=== PATIENT | female | born 1935 | race Caucasian/White ===

== ENCOUNTER 2017-08-25 07:34 | Day surgery (SDC) | payer MEDICARE, BC ==
[~2017-08-25 07:34] MED LIST: Lidocaine 4% 5 ML Amp EYERT ONE; Moxifloxacin 0.5% Ophth Soln 3 ML Bottle EYERT ONE; Sodium Chloride 0.9% 10 ML Syringe FLUSH PRN
[2017-08-25] MEDS ORDERED: Midazolam 1 MG/ML 2 ML SDV IV ONE (07:35)
[2017-08-25] MEDS: Cataract Ophth Solution EYERT ONE ×2 (08:10→08:45)
[2017-08-25] MEDS ORDERED: Cyclopentolate 2% Ophth Soln 5 ML Bottle EYERT ONE ×2 (09:20→09:41)
[2017-08-25] MEDS ORDERED: Cyclopentolate 2% Ophth Soln 5 ML Bottle ONE (09:24)
[2017-08-25] MEDS ORDERED: Povidone-Iodine 5% Sterile Ophth Soln 30 ML Bottle EYERT ONE (09:52)
[2017-08-25] MEDS ORDERED: Lidocaine 1% 30 ML SDV ONE (09:53)
[2017-08-25] MEDS ORDERED: Balanced Salt Solution Ophth Irrig 500 ML Bottle IOCULAR ONE (09:53)
[2017-08-25] MEDS ORDERED: EPINEPHrine 1 MG/ML SDV ONE (09:53)
[2017-08-25] MEDS ORDERED: prednisoLONE Acetate 1% Ophth Susp 5 ML Bottle EYERT ONE (09:53)
[2017-08-25] MEDS ORDERED: Moxifloxacin 0.5% Ophth Soln 3 ML Bottle EYERT ONE (09:54)
[2017-08-25] MEDS ORDERED: Lidocaine 4% 5 ML Amp EYERT ONE (09:54)
--- NOTE | 2017-08-25 10:35 | PCM.OPNOTE ---
- General Post-Op/Procedure Note Date of Surgery/Procedure: 08/25/17 Operative Procedure(s): Cataract extraction with lens implant, right eye Findings: As above Pre Op Diagnosis: Cataract right eye Post-Op Diagnosis: Same Anesthesia Technique: MAC Primary Surgeon: Alli Mccord Anesthesia Provider: Nick Pathology: None EBL in mLs: 0 Complications: None Condition: Good Free Text/Narrative:: PROCEDURE: After the risks and benefits of the procedure were explained informed consent was obtained from the patient and the patient was taken to the operating room. The patient was given topical Lidocaine 4% drops in the right eye. The patient was then prepped and draped in the sterile [facility] fashion. A wire lid speculum was placed in the right eye. A clear cornea temporal approach was used. A 7515 quinault blade was used to make a paracentesis site around 11:00. Preservative-free Lidocaine 1% was injected intracamerally. Viscoelastic was placed in the anterior chamber. A 2.65 mm keratome blade was used to make a clear corneal incision around 9:00. A cystotome needle and Utrata forceps were used to perform continuous curvilinear capsulorhexis. Balanced Salt Solution was used to perform hydrodissection and hydrodelineation. The lens nucleus was removed using the divide and conquer phacoemulsification technique. Cumulative dissipated energy was 4.83. Remaining cortex was removed using irrigation- aspiration. Viscoelastic was placed in the capsular bag. PCBOO 22.5 diopter lens was then placed in the capsular bag. Remaining viscoelastic was removed using irrigation-aspiration. The lens was well centered in the capsular bag. The paracentesis and corneal incision were found to be water-tight. The patient was given topical Prednisolone and Vigamox drops. The speculum was removed and a shield was placed over the right eye. The patient was taken to recovery in stable condition. I certify that I was present for and performed the entire operative procedure. Alli Mccord M.D.
[2017-08-25 11:30] VITALS: BP 134/77
== END 2017-08-25 11:20 | disposition home or self-care (01) ==
LOC: DL.SDS 07:34
PROVIDERS: ATTEND Ophthalmology
DX: H25.811 Combined forms of age-related cataract, right eye (principal); E03.9 Hypothyroidism, unspecified; G45.9 Transient cerebral ischemic attack, unspecified; Z88.8 Allergy status to other drugs, medicaments and biological substances; E78.00 Pure hypercholesterolemia, unspecified; Z98.890 Other specified postprocedural states; Z91.040 Latex allergy status; Z96.642 Presence of left artificial hip joint
CPT/HCPCS: 00142; 66984; A9270; C1780; J0171; J2250; J7050

== ENCOUNTER 2020-03-29 12:50 | Emergency (ER) | payer MEDICARE, BC ==
[2020-03-29] MEDS ORDERED: Sodium Chloride 0.9% 10 ML Syringe FLUSH PRN (12:59)
[2020-03-29 13:06] VITALS: BP 143/79; PULSE 76
--- NOTE | 2020-03-29 13:15 | EDM.PDOC ---
ED HPI GENERAL MEDICAL PROBLEM - General Chief Complaint: Neuro Symptoms/Deficits Stated Complaint: TROUBLE SPEAKING Time Seen by Provider: 03/29/20 13:05 Source of Information: Reports: Patient, RN, RN Notes Reviewed History Limitations: Reports: No Limitations - History of Present Illness INITIAL COMMENTS - FREE TEXT/NARRATIVE: Patient relates to the ER with complaint of difficulty speaking this morning. Patient states she had a TIA 10 years ago. Patient states today she was talking on the phone and had difficulty remembering what her address was. Patient states she commonly has difficulty getting words out, states she can see them and can write them but cannot say them. Patient states this has been happening for about the last 3 years. Patient states this morning made her very uneasy as she could not remember or state her address. Upon arrival to the ER, patient is alert and oriented, no difficulty with speech noted, no facial droop or one-sided weakness. Patient denies pain, denies headache, denies recent illness, fever, chills, N/V/D, chest pains, or shortness of breath.. Patient reports history of breast cancer. Patient states she did have a fall approximately 8 days ago. Patient states she did not hit her head and was not knocked out at that time. Does complain of some neck pain, and has seen her PCP since. Patient will be seeing physical therapy for her neck. NIHSS: 0 Onset: Today, Sudden Duration: Improving - Related Data Allergies Allergy/AdvReac Type Severity Reaction Status Date / Time latex Allergy Unknown Itching Verified 03/29/20 13:06 tramadol [From Ultram] Allergy Itching Verified 03/29/20 13:06 oxycodone AdvReac Other Verified 03/29/20 13:06 Home Meds: Home Meds Aspirin [Ecotrin EC] 81 mg PO DAILY 05/19/14 [History] Levothyroxine 75 mcg PO ACBRK 05/19/14 [History] Multivitamin [One Daily] 1 each PO DAILY 05/19/14 [History] Simvastatin [Zocor] 20 mg PO BEDTIME 05/19/14 [History] polyethylene glycoL 3350 [Miralax] 17 gm PO DAILY PRN 05/19/14 [History] Anastrozole [Arimidex] 1 mg PO DAILY 08/24/17 [History] Denosumab [Prolia] 60 mg SQ .[id number] 08/24/17 [History] Past Medical History HEENT History: Reports: Cataract Cardiovascular History: Reports: Heart Murmur, High Cholesterol Respiratory History: Reports: None Gastrointestinal History: Reports: None Genitourinary History: Reports: None [employer] History: Reports: Musculoskeletal History: Reports: Arthritis, Osteoporosis Neurological History: Reports: TIA Psychiatric History: Reports: None Endocrine/Metabolic History: Reports: Hypothyroidism Hematologic History: Reports: None Immunologic History: Reports: None Oncologic (Cancer) History: Reports: Breast Dermatologic History: Reports: None - Infectious Disease History Infectious Disease History: Reports: Chicken Pox, Measles - Past Surgical History HEENT Surgical History: Reports: None Cardiovascular Surgical History: Reports: None Respiratory Surgical History: Reports: None GI Surgical History: Reports: Colonoscopy Female Surgical History: Reports: D&C, Mastectomy Musculoskeletal Surgical History: Reports: Hip Replacement Oncologic Surgical History: Reports: Biopsy of Breast, Mastectomy Other Oncologic Surgeries/Procedures: RIGHT SIDE LIMB ALERT Dermatological Surgical History: Reports: Skin Biopsy Social & Family History - Family History Family Medical History: Noncontributory - Caffeine Use Caffeine Use: Reports: Coffee Caffeine Use Comment: 5 CUPS DAILY ED ROS GENERAL - Review of Systems Review Of Systems: Comprehensive ROS is negative, except as noted in HPI. ED EXAM, NEURO - Physical Exam Exam: See Below Exam Limited By: No Limitations General Appearance: Alert, WD/WN, No Apparent Distress, Anxious Eye Exam: Bilateral Eye: EOMI, PERRL (2 sluggish) Ears: Normal External Exam, Normal Canal, Hearing Grossly Normal, Normal TMs Nose: Normal Inspection Throat/Mouth: Normal Inspection, Normal Voice, No Airway Compromise Head Exam: Atraumatic, Normocephalic Neck: Normal Inspection, Limited Range of Motion, Tender Lateral Respiratory/Chest: No Respiratory Distress, Lungs Clear, Normal Breath Sounds, No Accessory Muscle Use, Chest Non-Tender Cardiovascular: Normal Peripheral Pulses, Regular Rate, Rhythm, No Edema, No Gallop, No JVD, No Murmur, No Rub GI/Abdominal: Normal Bowel Sounds, Soft, Non-Tender, No Organomegaly, No Distention, No Abnormal Bruit, No Mass, Pelvis Stable (Female) Exam: Deferred Rectal (Female) Exam: Deferred Neurological: Alert, Normal Mood/Affect, Normal Dorsiflexion, CN II-XII Intact, Normal Plantar Flexion, Normal Gait, Normal Reflexes, No Motor/Sensory Deficits , Oriented x 3 Back Exam: Normal Inspection, Full Range of Motion Extremities: Normal Inspection, Normal Range of Motion, Non-Tender, No Pedal Edema, Normal Capillary Refill Psychiatric: Normal Affect, Normal Mood, Anxious Skin Exam: Warm, Dry, Intact, Normal Color, No Rash Course - Vital Signs Last Recorded V/S: Last Vital Signs Temp 97 F 03/29/20 12:58 Pulse 76 03/29/20 12:58 Resp 18 03/29/20 12:58 BP 143/79 H 03/29/20 12:58 Pulse Ox 98 03/29/20 12:58 - Orders/Labs/Meds Orders: Active Orders 24 hr Category Date Time Status Blood Glucose Check, Bedside [RC] ONETIME Care 03/29/20 13:05 Active EKG Documentation Completion [RC] STAT Care 03/29/20 12:59 Active Peripheral IV Care [RC] . DIRECTED Care 03/29/20 13:05 Active CULTURE URINE [RM] Stat Lab 03/29/20 13:50 Received Peripheral IV Insertion Adult [OM.PC] Stat Oth 03/29/20 12:59 Ordered Labs: Laboratory Tests 03/29/20 03/29/20 03/29/20 Range/Units 13:35 13:35 13:35 WBC 6.6 (5.0-10.0) 10^3/uL RBC 4.75 (4.2-5.4) 10^6/uL Hgb 14.0 D (12.0-16.0) g/dL Hct 42.2 (37.0-47.0) % MCV 88.8 (80-100) fL MCH 29.5 (27.0-34.0) pg MCHC 33.2 (33.0-35.0) g/dL Plt Count 240 (150-450) 10^3/uL Neut % (Auto) 55.5 (42.2-75.2) % Lymph % (Auto) 30.6 (20.5-50.1) % Charlton % (Auto) 11.3 H (2-8) % Eos % (Auto) 2.0 (1.0-3.0) % Baso % (Auto) 0.6 (0.0-1.0) % PT 9.7 (9.0-12.0) SEC INR 1.0 (0.9-1.2) Sodium 140 (136-145) mmol/L Potassium 4.2 (3.5-5.1) mmol/L Chloride 103 (98-107) mmol/L Carbon Dioxide 29 (21-32) mmol/L Anion Gap 12.2 (7-13) mEq/L BUN 15 (7-18) mg/dL Creatinine 0.96 (0.55-1.02) mg/dL Est Cr Clr Drug Dosing 36.55 mL/min Estimated GFR (MDRD) 56 BUN/Creatinine Ratio 15.6 (No establ ref range) Glucose 85 (74-99) mg/dL Calcium 9.6 (8.5-10.1) mg/dL Total Bilirubin 0.3 (0.2-1.0) mg/dL AST 19 (15-37) U/L ALT 19 (14-59) U/L Alkaline Phosphatase 74 (46-116) U/L Troponin I < 0.017 (0.000-0.056) ng/mL Total Protein 7.3 (6.4-8.2) g/dL Albumin 3.5 (3.4-5.0) g/dL Globulin 3.8 Albumin/Globulin Ratio 0.9 Urine Color (YELLOW) Urine Appearance (CLEAR) Urine pH (5.0-9.0) Ur Specific Velva (1.005-1.030) Urine Protein (NEGATIVE) Urine Glucose (UA) (NEGATIVE) Urine Ketones (NEGATIVE) Urine Occult Blood (NEGATIVE) Urine Nitrite (NEGATIVE) Urine Bilirubin (NEGATIVE) Urine Urobilinogen (0.2-1.0) mg/dL Ur Leukocyte Esterase (NEGATIVE) Urine RBC /HPF Urine WBC (0-5/HPF) /HPF Ur Epithelial Cells (NOT SEEN) /HPF Amorphous Sediment (NOT SEEN) /HPF Urine Bacteria (0-FEW/HPF) /HPF Urine Mucus (NOT SEEN) /LPF Ethyl Alcohol < 3 (0) mg/dL 03/29/20 Range/Units 13:50 WBC (5.0-10.0) 10^3/uL RBC (4.2-5.4) 10^6/uL Hgb (12.0-16.0) g/dL Hct (37.0-47.0) % MCV (80-100) fL MCH (27.0-34.0) pg MCHC (33.0-35.0) g/dL Plt Count (150-450) 10^3/uL Neut % (Auto) (42.2-75.2) % Lymph % (Auto) (20.5-50.1) % Charlton % (Auto) (2-8) % Eos % (Auto) (1.0-3.0) % Baso % (Auto) (0.0-1.0) % PT (9.0-12.0) SEC INR (0.9-1.2) Sodium (136-145) mmol/L Potassium (3.5-5.1) mmol/L Chloride (98-107) mmol/L Carbon Dioxide (21-32) mmol/L Anion Gap (7-13) mEq/L BUN (7-18) mg/dL Creatinine (0.55-1.02) mg/dL Est Cr Clr Drug Dosing mL/min Estimated GFR (MDRD) BUN/Creatinine Ratio (No establ ref range) Glucose (74-99) mg/dL Calcium (8.5-10.1) mg/dL Total Bilirubin (0.2-1.0) mg/dL AST (15-37) U/L ALT (14-59) U/L Alkaline Phosphatase (46-116) U/L Troponin I (0.000-0.056) ng/mL Total Protein (6.4-8.2) g/dL Albumin (3.4-5.0) g/dL Globulin Albumin/Globulin Ratio Urine Color Yellow (YELLOW) Urine Appearance Slightly cloudy (CLEAR) Urine pH 6.5 (5.0-9.0) Ur Specific Velva 1.020 (1.005-1.030) Urine Protein Negative (NEGATIVE) Urine Glucose (UA) Negative (NEGATIVE) Urine Ketones Negative (NEGATIVE) Urine Occult Blood Negative (NEGATIVE) Urine Nitrite Negative (NEGATIVE) Urine Bilirubin Negative (NEGATIVE) Urine Urobilinogen 0.2 (0.2-1.0) mg/dL Ur Leukocyte Esterase Small H (NEGATIVE) Urine RBC 0-5 /HPF Urine WBC 0-5 (0-5/HPF) /HPF Ur Epithelial Cells Rare (NOT SEEN) /HPF Amorphous Sediment Occasional (NOT SEEN) /HPF Urine Bacteria Rare (0-FEW/HPF) /HPF Urine Mucus Not seen (NOT SEEN) /LPF Ethyl Alcohol (0) mg/dL Meds: Medications Discontinued Medications Generic Name Dose Route Start Last Admin Trade Name Kayla PRN Reason Stop Dose Admin Sodium Chloride 10 ml 03/29/20 12:59 Saline Flush FLUSH ASDIRECTED PRN Keep Vein Open - Radiology Interpretation Free Text/Narrative:: Head CT wo contrast: Multi-infarct ischemic disease, chronic. No new intracranial mass, hydrocephalus or bleed Unchanged from May 12, 2018 exam See rad report - Re-Assessments/Exams Free Text/Narrative Re-Assessment/Exam: 03/29/20 15:18 NIHSS: 0 Departure - Departure Time of Disposition: 14:24 Disposition: Home, Self-Care 01 Condition: Fair Clinical Impression: TIA (transient ischemic attack) - Discharge Information *PRESCRIPTION DRUG MONITORING PROGRAM REVIEWED*: No *COPY OF PRESCRIPTION DRUG MONITORING REPORT IN PATIENT NILDA: No Instructions: Transient Ischemic Attack, [id number] Forms: ED Department Discharge Additional Instructions: Follow up with your primary care facility Return to ER with any further problems Sepsis Event Note (ED) - Evaluation Sepsis Screening Result: No Definite Risk - Focused Exam Vital Signs: Vital Signs Temp Pulse Resp BP Pulse Ox 03/29/20 12:58 97 F 76 18 143/79 H 98 - My Orders Last 24 Hours: My Active Orders 03/29/20 12:59 EKG Documentation Completion [RC] STAT Peripheral IV Insertion Adult [OM.PC] Stat 03/29/20 13:05 Blood Glucose Check, Bedside [RC] ONETIME Peripheral IV Care [RC] . DIRECTED 03/29/20 13:50 CULTURE URINE [RM] Stat - Assessment/Plan Last 24 Hours: My Active Orders 03/29/20 12:59 EKG Documentation Completion [RC] STAT Peripheral IV Insertion Adult [OM.PC] Stat 03/29/20 13:05 Blood Glucose Check, Bedside [RC] ONETIME Peripheral IV Care [RC] . DIRECTED 03/29/20 13:50 CULTURE URINE [RM] Stat
--- NOTE | 2020-03-29 13:36 | CT ---
EXAMINATION: Head wo Cont SEX: Female AGE: 84 years CLINICAL HISTORY: 84-year-old female with trouble speaking "at times" (TIA). History stage II breast cancer this patient reported on [address] scan to have "multi-infarct ischemic disease". Scan technique: Volume acquisition of data unenhanced CT scan of the head and brain obtained with patient lying supine on the Siemens multislice scanner [facility]. All data archived in the PACS system for storage, reformatting axial/sagittal/coronal planes and study. Interpretation: Abnormal. Multiple focal areas of decreased attenuation scattered throughout the periventricular white matter of both cerebral hemispheres as noted back on 12 May 2018 exam i.e. multi-infarct ischemic lesions unchanged. Uniformly thick bony calvarium without sign of pathologic skeletal lesion, skull fracture, underlying brain contusion or epidural/subdural hematoma. Mild symmetric cerebral cortical and cerebellar atrophy pattern. Underlying mirror-image normal ventricular system. No hydrocephalus. No encephalomalacia or arachnoid cyst. No new supratentorial or posterior fossa mass lesion. Dense midline pineal calcification. Brainstem unremarkable. No sign of acute intracerebral, intraventricular or subarachnoid bleed. CONCLUSION: Multi-infarct ischemic disease, chronic. No new intracranial mass, hydrocephalus or bleed.
[2020-03-29 14:07] LABS: ANION GAP 12.2 mEq/L (7-13); CHLORIDE,CL 103 mmol/L (98-107); SODIUM,NA 140 mmol/L (136-145)
== END 2020-03-29 14:34 | disposition home or self-care (01) ==
LOC: DL.ED 12:50
DX: G45.9 Transient cerebral ischemic attack, unspecified (principal); E78.00 Pure hypercholesterolemia, unspecified; E03.9 Hypothyroidism, unspecified; M19.90 Unspecified osteoarthritis, unspecified site; Z88.5 Allergy status to narcotic agent; Z91.040 Latex allergy status; Z79.82 Long term (current) use of aspirin; Z79.899 Other long term (current) drug therapy
CPT/HCPCS: 36415; 70450; 80053; 80307; 81001; 82962; 84484; 85025; 85610; 87086; 93005; 99284; 99285-25

== ENCOUNTER 2020-05-02 07:00 | Day surgery (SDC) | payer MEDICARE, BC ==
[~2020-05-02 07:00] MED LIST changes: +Acetaminophen 325 MG Tab PO PRN; +Cataract Ophth Solution EYELF ONE; -Lidocaine 4% 5 ML Amp EYERT ONE; +Moxifloxacin 0.5% Ophth Soln 3 ML Bottle EYELF ONE; -Moxifloxacin 0.5% Ophth Soln 3 ML Bottle EYERT ONE; +Ondansetron 4 MG/2 ML SDV IVPUSH PRN; +Phenylephrine 10% Ophth Soln 5 ML Bot EYELF ONE; +Povidone-Iodine 5% Sterile Ophth Soln 30 ML Bottle EYELF ONE; +Proparacaine 0.5% Ophth Soln 15 ML Bottle EYELF ONE; +Timolol Maleate 0.5% Ophth Soln 5 ML Bottle EYELF ONE; +Tropicamide 1% Ophth Soln 15 ML Bottle EYELF ONE
[2020-05-02] MEDS ORDERED: Dexamethasone 4 MG/ML SDV IV ONE (07:01)
[2020-05-02] MEDS ORDERED: Midazolam 1 MG/ML 2 ML SDV IV ONE (07:01)
[2020-05-02] MEDS ORDERED: Sodium Chloride 0.9% 10 ML Syringe IV ONE (07:01)
[2020-05-02] MEDS ORDERED: Tetracaine HCl/PF 0.5% 4 ML Bottle EYELF ONE (08:29)
[2020-05-02] MEDS ORDERED: Diclofenac Sodium 0.1% Ophth Soln 5 ML Bottle EYELF ONE (08:29)
[2020-05-02] MEDS ORDERED: Apraclonidine 0.5% Ophth Soln 5 ML Bot EYELF ONE (08:29)
[2020-05-02] MEDS ORDERED: Povidone-Iodine 5% Sterile Ophth Soln 30 ML Bottle EYELF ONE (08:29)
[2020-05-02] MEDS ORDERED: Lidocaine 1% 30 ML SDV ONE (08:29)
[2020-05-02] MEDS ORDERED: Chondroitin Sulfate/Hyaluronate Sodium Ophth Inj 0.75 ML Syringe EYELF ONE (08:30)
[2020-05-02] MEDS ORDERED: Dexamethasone/Neomycin/Polymyxin B Ophth Oint 3.5 GM Tube EYELF ONE (08:30)
[2020-05-02] MEDS ORDERED: Vancomycin 500 MG SDV EYELF ONE (08:30)
[2020-05-02] MEDS ORDERED: Balanced Salt Solution Ophth Irrig 500 ML Bottle IOCULAR ONE (08:30)
--- NOTE | 2020-05-02 10:15 | OR ---
DATE: 05/02/2020 PREOPERATIVE DIAGNOSIS: Visually significant mixed cataract, left eye. POSTOPERATIVE DIAGNOSIS: Visually significant mixed cataract, left eye. PROCEDURE: Extracapsular cataract extraction with intraocular lens implant, left eye. ANESTHESIA: Topical/local MAC. COMPLICATIONS: None. INDICATION: Ms. Garcia was seen in the clinic with complaints of blurred vision. The examination revealed visually significant mixed cataract. I explained the options. I offered cataract surgery and I explained risks, including, but not limited to, infection, retinal detachment, loss of vision, need for additional surgery, and risks associated with anesthesia. She does have a history of macular degeneration. I did explain that her ultimate visual potential may be limited by retinal health. We discussed implant options. She has requested a monofocal implant. OPERATIVE DESCRIPTION: After informed consent was obtained and the risks, benefits, and alternatives were explained, the patient was brought to the operative suite and topical anesthesia was administered. The patient was then prepped and draped in the sterile fashion and attention was placed on the left eye. A sterile lid speculum was placed into the left eye to allow operative exposure. A full-thickness paracentesis was made in the temporal portion of the operative eye. Preservative-free lidocaine 0.1 mL was injected into the anterior chamber followed by viscoelastic. A full-thickness corneal incision was then made into the anterior chamber. A bent needle cystotome was used to create a small boogie in the anterior capsule. The capsulorrhexis forceps was then used to create a 360-degree curvilinear capsulorrhexis. The nucleus was then removed using a phacoemulsification handpiece and the remaining cortical material was then removed with irrigation and aspiration handpiece. Following removal of the cortical material, the capsular bag was then inspected and noted to be free of any holes or tears. Viscoelastic was then injected into the capsular bag and the intraocular lens was inserted into the capsular bag. The viscoelastic material was then removed from both the anterior and posterior chambers and from behind the IOL. The lens and capsular bag were then reinspected. The IOL was well centered and the capsular bag intact. The wound and paracentesis sites were inspected and hydrated with balanced saline solution. Both were found to be self- sealing. The intraocular pressure was assessed digitally and found to be within normal range. A good red reflex was noted at the completion of the procedure. No complications occurred during the operation. At the completion of the procedure, Jennifer, Voltaren, and Iopidine drops were placed into the operative eye. A sterile eye shield was placed over the operative eye and the patient was transported to the postoperative recovery area having tolerated the procedure well. Postoperative instructions were given along with a postoperative appointment. The patient was advised to call with any questions or concerns. [facility] /[id number]
[2020-05-02 11:57] VITALS: BP 124/66; PULSE 64
== END 2020-05-02 09:42 | disposition home or self-care (01) ==
LOC: DL.SDS 07:00
PROVIDERS: ATTEND Ophthalmology
DX: H25.812 Combined forms of age-related cataract, left eye (principal); E66.9 Obesity, unspecified; E78.5 Hyperlipidemia, unspecified; Z79.899 Other long term (current) drug therapy; Z91.040 Latex allergy status; Z88.8 Allergy status to other drugs, medicaments and biological substances; Z98.41 Cataract extraction status, right eye; Z68.35 Body mass index [BMI] 35.0-35.9, adult
CPT/HCPCS: 00142; 66984; A9270; J1100; J2001; J2250; J3370; V2632

== ENCOUNTER 2022-04-17 19:28 | Emergency (ER) | payer MEDICARE, BC ==
[2022-04-17 19:25] VITALS: BP 135/81; PULSE 93
[2022-04-17 20:37] LABS: ANION GAP 8.4 mEq/L (7-13)
[2022-04-17] MEDS ORDERED: Iopamidol 755 Mg/ML 100 ML Bottle IVPUSH ONE (20:57)
[2022-04-17] MEDS ORDERED: Benzonatate 100 MG Cap PO ONE (22:43)
== END 2022-04-17 23:06 | disposition home or self-care (01) ==
LOC: DL.ED 19:28
DX: U07.1 COVID-19 (principal); E03.9 Hypothyroidism, unspecified; E66.9 Obesity, unspecified; Z68.28 Body mass index [BMI] 28.0-28.9, adult; Z91.040 Latex allergy status; Z88.5 Allergy status to narcotic agent; Z79.82 Long term (current) use of aspirin; Z79.899 Other long term (current) drug therapy; Z86.73 Personal history of transient ischemic attack (TIA), and cerebral infarction without residual deficits
CPT/HCPCS: 36415; 71260; 80053; 83605; 84484; 85025; 85379; 87040; 93005; 99284; A9270; Q9967

== ENCOUNTER 2023-11-17 17:11 | Emergency (ER) | payer MEDICARE, BC ==
[2023-11-17 17:47] VITALS: BP 137/63; PULSE 83
[2023-11-17] MEDS: Lactulose Soln 10 GM/15 ML 30 ML UD Cup PO ONE (18:14)
== END 2023-11-17 18:26 | disposition home or self-care (01) ==
LOC: DL.ED 17:11
DX: K59.00 Constipation, unspecified (principal); M19.90 Unspecified osteoarthritis, unspecified site; E78.00 Pure hypercholesterolemia, unspecified; E66.9 Obesity, unspecified; E03.9 Hypothyroidism, unspecified; Z68.27 Body mass index [BMI] 27.0-27.9, adult; Z88.5 Allergy status to narcotic agent; Z91.040 Latex allergy status; Z88.8 Allergy status to other drugs, medicaments and biological substances; Z79.82 Long term (current) use of aspirin; Z79.899 Other long term (current) drug therapy
CPT/HCPCS: 74019; 99283; A9270

== ENCOUNTER 2024-10-16 10:15 | Emergency (ER) | payer MEDICARE, BC ==
[2024-10-16] MEDS: Take Home: Acetaminophen/oxyCODONE 325-5 MG, 5 Tab Pack PO ONE (11:45)
[2024-10-16] MEDS: oxyCODONE ER 10 MG TAB.ER PO ONE (11:46)
[2024-10-16 11:59] VITALS: BP 125/79; PULSE 78
== END 2024-10-16 11:59 | disposition home or self-care (01) ==
LOC: DL.ED 10:15
DX: G89.29 Other chronic pain (principal); M54.50 Low back pain, unspecified; C79.51 Secondary malignant neoplasm of bone; M19.90 Unspecified osteoarthritis, unspecified site; E78.00 Pure hypercholesterolemia, unspecified; E66.9 Obesity, unspecified; E03.9 Hypothyroidism, unspecified; Z91.040 Latex allergy status; Z88.8 Allergy status to other drugs, medicaments and biological substances; Z79.82 Long term (current) use of aspirin; Z79.890 Hormone replacement therapy; Z79.899 Other long term (current) drug therapy; Z86.16 Personal history of COVID-19; Z68.30 Body mass index [BMI] 30.0-30.9, adult
CPT/HCPCS: 99284; A9270

== ENCOUNTER 2025-03-01 10:45 | Emergency (ER) | payer MEDICARE, BC ==
[2025-03-01] MEDS ORDERED: Sodium Chloride 0.9% 10 ML Syringe FLUSH PRN (11:14)
[2025-03-01 11:51] LABS: BASOPHILS PERCENT AUTO 0.5 % (0.0-1.0); EOSINOPHILS PERCENT AUTO 0.2 % (1.0-3.0); HEMOGLOBIN 11.6 g/dL (12.0-16.0); LYMPHOCYTES PERCENT AUTO 8.8 % (20.5-50.1); MEAN CORPUSCULAR HEMOGLOBIN 33.9 pg (27.0-34.0); MEAN CORPUSCULAR HGB CONC 33.1 g/dL (33.0-35.0); MEAN CORPUSCULAR VOLUME 102.3 fL (80-100); MONOCYTES PERCENT AUTO 5.9 % (2-8); NEUTROPHILS PERCENT AUTO 84.6 % (42.2-75.2); PLATELET COUNT,PLT 192 10^3/uL (150-450); RED BLOOD CELL COUNT 3.42 10^6/uL (4.2-5.4); WHITE BLOOD CELL COUNT,WBC 5.6 10^3/uL (5.0-10.0)
[2025-03-01 12:02] LABS: PROTHROMBIN TIME 10.1 SEC (9.0-12.0)
[2025-03-01 12:08] LABS: LACTIC ACID 1.3 mmol/L (0.4-2.0)
[2025-03-01 12:14] LABS: ALANINE AMINOTRANSFERASE,ALT 16 U/L (14-59); ALBUMIN 3.2 g/dL (3.4-5.0); ALKALINE PHOSPHATASE 61 U/L (46-116); ANION GAP 12.1 mEq/L (7-13); ASPARTATE AMNIOTRANSFERASE,AST 19 U/L (15-37); BILIRUBIN TOTAL 0.4 mg/dL (0.2-1.0); BLOOD UREA NITROGEN,BUN 16 mg/dL (7-18); CALCIUM 8.6 mg/dL (8.5-10.1); CARBON DIOXIDE,CO2 27 mmol/L (21-32); CHLORIDE,CL 104 mmol/L (98-107); CREATININE 0.84 mg/dL (0.55-1.02); EST CRCL DRUG DOSING (CG) 40.74 mL/min; GLUCOSE RANDOM 118 mg/dL (70-99); POTASSIUM,K 4.1 mmol/L (3.5-5.1); PROTEIN TOTAL,TP 6.9 g/dL (6.4-8.2); SODIUM,NA 139 mmol/L (136-145)
[2025-03-01 12:15] VITALS: BP 137/74; PULSE 56
[2025-03-01 12:22] LABS: APPEARANCE,URINE TURBID (CLEAR); BILIRUBIN,URINE NEGATIVE (NEGATIVE); COLOR,URINE DARK YELLOW (YELLOW); GLUCOSE,URINE NEGATIVE (NEGATIVE); KETONES,URINE 15 (NEGATIVE); LEUKOCYTE ESTERASE,URINE SMALL (NEGATIVE); NITRITE,URINE NEGATIVE (NEGATIVE); OCCULT BLOOD,URINE SMALL (NEGATIVE); PROTEIN,URINE 30 (NEGATIVE)
[2025-03-01 12:24] LABS: A/G RATIO 0.86; C-REACTIVE PROTEIN < 0.50 ng/dL (<=0.50); ESTIMATED GFR 67 mL/min (>=60)
[2025-03-01 12:30] LABS: AMORPHOUS SEDIMENT,URINE MANY /HPF (NOT SEEN)
[2025-03-01 12:31] LABS: BACTERIA,URINE MANY /HPF (0-FEW/HPF)
[2025-03-01 12:48] LABS: EPITHELIAL CELLS,URINE FEW /HPF (NOT SEEN)
[2025-03-01 12:49] LABS: MUCUS,URINE FEW /LPF (NOT SEEN)
[2025-03-01 12:52] LABS: RBC,URINE 20-30 /HPF (0-5)
[2025-03-01 14:08] LABS: APPEARANCE,URINE CLEAR (CLEAR); BILIRUBIN,URINE NEGATIVE (NEGATIVE); COLOR,URINE YELLOW (YELLOW); GLUCOSE,URINE NEGATIVE (NEGATIVE); KETONES,URINE 15 (NEGATIVE); LEUKOCYTE ESTERASE,URINE NEGATIVE (NEGATIVE); NITRITE,URINE NEGATIVE (NEGATIVE); OCCULT BLOOD,URINE NEGATIVE (NEGATIVE); PH,URINE 7.5 (5.0-9.0); PROTEIN,URINE 30 (NEGATIVE)
[2025-03-01 14:23] LABS: BACTERIA,URINE FEW /HPF (0-FEW/HPF); EPITHELIAL CELLS,URINE FEW /HPF (NOT SEEN); MUCUS,URINE FEW /LPF (NOT SEEN); RBC,URINE 0-5 /HPF (0-5); WBC,URINE 0-5 /HPF (0-5/HPF)
== END 2025-03-01 15:29 | disposition home or self-care (01) ==
LOC: DL.ED 10:45
DX: R55 Syncope and collapse (principal); E03.9 Hypothyroidism, unspecified; Z86.16 Personal history of COVID-19; Z88.5 Allergy status to narcotic agent; Z91.040 Latex allergy status; Z79.890 Hormone replacement therapy; Z79.899 Other long term (current) drug therapy
CPT/HCPCS: 36415; 70450; 80053; 81001; 82140; 82947; 83605; 83735; 84484; 85025; 85610; 85730; 86140; 87086; 93005; 93010; 99283; 99285